=== PATIENT | male | born 1970 | race Hispanic/Latino ===

== ENCOUNTER → 2019-01-25 | Outpatient (CLI) | payer BC | END | disposition home or self-care (01) | LOC: SHCH 08:30 | PROVIDERS: ATTEND Internal Medicine Cardiovascular Disease | DX: I11.9 Hypertensive heart disease without heart failure (principal) | CPT/HCPCS: 93306 ==

== ENCOUNTER 2019-04-05 06:05 | Observation (INO) | payer BC ==
[2019-04-03 14:50] VITALS: BP 139/70
[2019-04-03 15:05] LABS: BASOPHILS % (AUTO) 0.7 % (0.0-5.0); HEMATOCRIT 44.4 % (42-54); LYMPHOCYTES % (AUTO) 25.3 % (21.0-51.0); MEAN CORPUSCULAR HEMOGLOBIN 32.2 pg (27.0-33.0); MEAN CORPUSCULAR HGB CONC 34.3 g/dL (32.0-36.0); MONOCYTES % (AUTO) 6.4 % (3.0-13.0); NEUTROPHILS % (AUTO) 63.6 % (40.0-77.0); PLATELET COUNT (AUTO) 145 K/uL (130-400); RED BLOOD CELL COUNT(AUTO) 4.73 MIL/uL (4.50-6.20); RED CELL DISTRIBUTION WIDTH 14.3 % (11.0-15.5)
[2019-04-03 15:18] LABS: POTASSIUM 3.8 mmol/L (3.5-5.1)
[2019-04-03 15:20] LABS: INR 0.98 (0.85-1.15); PARTIAL THROMBOPLASTIN TIME 27.1 SEC (26.3-35.5); PROTHROMBIN TIME 10.3 SEC (9.6-11.6)
[~2019-04-05] VITALS: Ht 185.4 cm; Wt 164.0 kg
[2019-04-05] VITALS (10 sets, daily range): BP systolic 103–145; BP diastolic 59–81
[~2019-04-05 06:05] MED LIST: ASPI-1181 PO; CARV12.511 PO; FURO40TA5 PO; LISI-617 PO
[2019-04-05] MEDS: SODIUM CHLORIDE 0.9% 1000ML 1,000 ML IV SCH ×2 (06:37→20:08)
[2019-04-05] MEDS ORDERED: MIDAZOLAM HCL 1 MG/ML 2ML VIAL ONE ×3 (07:25→08:16)
[2019-04-05] MEDS ORDERED: IODIXANOL 320 MG/ML 100 ML VIAL ONE (07:25)
[2019-04-05] MEDS ORDERED: MEPERIDINE-PF 25 MG/ML SYG ONE ×3 (07:25→08:16)
[2019-04-05] MEDS ORDERED: LIDOCAINE HCL 1% MDV 50ML VIAL ONE (07:26)
[2019-04-05] MEDS ORDERED: VANCOMYCIN 1GM+NS 250ML 500 ML IV ONE (07:26)
[2019-04-05] MEDS ORDERED: BUPIVACAINE/PF 0.25% 30ML VIAL IJ ONE (07:27)
--- NOTE | 2019-04-05 07:30 | NUR ---
PROCEDURE PT TAKEN TO [facility] VIA BED,NO DISTRESS NOTED. DENIED ANY PAIN OR DISCOMFORTS.
[2019-04-05] MEDS ORDERED: ACETAMINOPHEN-CODEINE 300/30MG TAB PO PRN (09:15)
--- NOTE | 2019-04-05 09:25 | NUR ---
POST RECEIVED PATIENT FROM MANAGER ICU, S/P ICD. DRESSING TO LEFT UPPER CHEST DRY AND INTACT, ARM SLING IN PLACE. VS STABLE ON ARRIVAL. PLAN OF CARE DISCUSS WITH PATIENT
--- NOTE | 2019-04-05 09:49 | NUR ---
ADMIT SPOKE TO DR. DEAN INFORM HIM OF PATIENTS ADMISSION. INFORMED HIM OF ROOM NUMBER
--- NOTE | 2019-04-05 10:22 | NUR ---
REPORT REPORT GIVEN TO KOTA SONG RN
--- NOTE | 2019-04-05 10:25 | NUR ---
TRANSFER PATIENT TRANSFERRED TO ROOM 223 VIA BED, PATIENT AWAKE AND ALERT, LEFT UPPER CHEST DRESSING DRY AND INTACT WITH ARM SLING IN PLACE. NO HEMATOMA OR BLEEDING TO SITE. VS STABLE.
--- NOTE | 2019-04-05 10:30 | NUR ---
POST PROCEDURE RECEIVED PT FROM DAY PATIENT, IN SEMI JAQUEZ'S POSITION, A&OX3, CALM COOPERATIVE AND DOES NOT APPEAR TO BE IN ANY DISTRESS NOR ANY NEURO DEFICITS PRESENT. LEFT SHOULDER DRESSING DRY, INTACT AND SECURED WITH ARM SLING, PT ON BEDREST FOR 3 HOURS UNTIL 1330. PT DOES C/O INCISIONAL DISCOMFORT. CALL LIGHT WITHIN REACH.
[2019-04-05] MEDS ORDERED: LISINOPRIL 5 MG TABLET PO SCH (21:00)
[2019-04-05] MEDS: CARVEDILOL 12.5 MG TABLET PO SCH (21:59)
[2019-04-06 00:48] VITALS: BP 131/85
[2019-04-06 04:42] VITALS: BP 143/92
[2019-04-06 08:00] VITALS: BP 130/86
[2019-04-06] MEDS: CARVEDILOL 12.5 MG TABLET PO SCH (08:58)
[2019-04-06] MEDS ORDERED: ASPIRIN 81 MG EC TAB PO SCH (09:00)
[2019-04-06] MEDS ORDERED: FUROSEMIDE 40 MG TABLET PO SCH (09:00)
[2019-04-06 11:47] VITALS: BP_SYST 113; BP_SYST 13; BP_DIAS 70
--- NOTE | 2019-04-06 15:00 | NUR ---
DISCHARGE INSTRUCTIONS GIVEN, PIV REMOVED AND INTACT, DISCHARGED HOME TO FAMILY VEHICLE VIA WHEELCHAIR..
== END 2019-04-06 14:51 | disposition home or self-care (01) ==
LOC: DAH 06:05 → DAHIP 06:06 → DAH 06:06 → 2DH 10:27
PROVIDERS: ADMIT Internal Medicine; ATTEND Internal Medicine
DX: I50.22 Chronic systolic (congestive) heart failure (principal); I25.5 Ischemic cardiomyopathy; I42.0 Dilated cardiomyopathy; F41.9 Anxiety disorder, unspecified; Z87.891 Personal history of nicotine dependence; Z79.82 Long term (current) use of aspirin; Z79.899 Other long term (current) drug therapy; Z88.0 Allergy status to penicillin
CPT/HCPCS: 33249; 36415; 71045; 80048; 85025; 85610; 85730; A4215; A4216; A4221; A4222; A4223 ×3; A4606; C1722; C1895; G0378 ×30; J2175 ×2; J2250 ×2; J3370; J3490 ×2; J7030; Q9967; 99156; 99157

== ENCOUNTER 2021-11-11 22:44 | Emergency (ER) | payer BC ==
[~2021-11-11] VITALS: Ht 185.4 cm; Wt 189.6 kg
[~2021-11-11 22:44] MED LIST changes: -ASPI-1181 PO; +ASPI-1443 PO; -LISI-617 PO; +LISI5TAB21 PO
[2021-11-11] MEDS ORDERED: FUROSEMIDE 40MG VIAL IV ONE (23:30)
[2021-11-11 23:44] LABS: BASOPHILS % (AUTO) 0.8 % (0.0-5.0); EOSINOPHILS % (AUTO) 1.4 % (0.0-8.0); HEMATOCRIT 47.1 % (42-54); LYMPHOCYTES % (AUTO) 24.8 % (21.0-51.0); MEAN CORPUSCULAR HEMOGLOBIN 28.6 pg (27.0-33.0); MEAN CORPUSCULAR HGB CONC 32.1 g/dL (32.0-36.0); MEAN CORPUSCULAR VOLUME 89.2 fL (79-99); MONOCYTES % (AUTO) 8.5 % (3.0-13.0); NEUTROPHILS % (AUTO) 64.2 % (40.0-77.0); PLATELET COUNT (AUTO) 140 K/uL (130-400); RED BLOOD CELL COUNT(AUTO) 5.28 MIL/uL (4.50-6.20); RED CELL DISTRIBUTION WIDTH 17.1 % (11.0-15.5); WHITE BLOOD COUNT (AUTO) 7.7 K/uL (4.8-10.8)
[2021-11-11 23:52] LABS: CREATININE 1.1 mg/dL (0.5-1.5); POTASSIUM 3.8 mmol/L (3.5-5.1)
[2021-11-11 23:57] LABS: ALBUMIN 3.3 g/dL (3.5-5.0); BILIRUBIN,TOTAL 3.1 mg/dL (0.2-1.0); MAGNESIUM 1.9 mg/dL (1.80-2.40); TOTAL PROTEIN, SERUM 6.9 g/dL (6.0-8.3)
[2021-11-12 00:01] LABS: B-TYPE NATRIURETIC PEPTIDE 1060 pg/mL (0-100)
[2021-11-12 00:30] VITALS: BP 137/94
[2021-11-12] MEDS ORDERED: BUME1TAB7 PO (00:49)
[2021-11-12] MEDS ORDERED: ACET-2079 PO (00:49)
[2021-11-12] MEDS ORDERED: ONDA4TAB10 PO (00:49)
== END 2021-11-12 01:16 | disposition home or self-care (01) ==
LOC: EDH 22:44
DX: E86.9 Volume depletion, unspecified (principal); R11.0 Nausea; I11.0 Hypertensive heart disease with heart failure; I50.9 Heart failure, unspecified; Z88.0 Allergy status to penicillin; Z79.899 Other long term (current) drug therapy; Z79.82 Long term (current) use of aspirin
CPT/HCPCS: 36415; 71045; 80053; 83735; 83880; 84484; 85025; 93005; 96374; 99284; J1940

== ENCOUNTER 2023-03-16 15:28 | Emergency (ER) | payer BC, OTHER ==
[~2023-03-16] VITALS: Ht 185.4 cm; Wt 196.0 kg
[~2023-03-16 15:28] MED LIST changes: +ACET-2079 PO; +BUME1TAB7 PO; +ONDA4TAB10 PO
[2023-03-16 17:47] LABS: BASOPHILS # (AUTO) 0.04 K/uL (0.00-0.20); BASOPHILS % (AUTO) 0.5 % (0.0-5.0); EOSINOPHILS # (AUTO) 0.16 K/uL (0.00-0.70); EOSINOPHILS % (AUTO) 2.2 % (0.0-8.0); HEMATOCRIT 52.6 % (42-54); IMMATURE GRANULOCYTE ABSOLUTE 0.04 K/uL (0-1); LYMPHOCYTES # (AUTO) 1.8 K/uL (1.0-4.8); LYMPHOCYTES % (AUTO) 25.1 % (21.0-51.0); MEAN CORPUSCULAR HEMOGLOBIN 30.1 pg (27.0-33.0); MEAN CORPUSCULAR HGB CONC 32.9 g/dL (32.0-36.0); MEAN CORPUSCULAR VOLUME 91.5 fL (79-99); MONOCYTES # (AUTO) 0.6 K/uL (0.1-1.0); MONOCYTES % (AUTO) 7.9 % (3.0-13.0); NEUTROPHILS # (AUTO) 4.7 K/uL (1.8-7.7); NEUTROPHILS % (AUTO) 63.8 % (40.0-77.0); NUCLEATED RED BLOOD CELLS 0.3 % (0.0-0.19); PLATELET COUNT (AUTO) 127 K/uL (130-400); RED BLOOD CELL COUNT(AUTO) 5.75 MIL/uL (4.50-6.20); RED CELL DISTRIBUTION WIDTH 16.3 % (11.0-15.5); WHITE BLOOD COUNT (AUTO) 7.3 K/uL (4.8-10.8)
[2023-03-16 17:59] LABS: CREATININE 1.2 mg/dL (0.5-1.5); POTASSIUM 3.5 mmol/L (3.5-5.1)
[2023-03-16 18:03] LABS: ALBUMIN 3.2 g/dL (3.5-5.0); BILIRUBIN,TOTAL 1.5 mg/dL (0.2-1.0); TOTAL PROTEIN, SERUM 6.2 g/dL (6.0-8.3)
[2023-03-16] MEDS ORDERED: LIDOCAINE HCL 2% VISCOUS 15 ML UDCUP PO ONE (18:30)
[2023-03-16] MEDS ORDERED: MAG/ALUM/SIMETH 30 ML UDCUP PO ONE (18:30)
[2023-03-16] MEDS ORDERED: METOCLOPRAMIDE 10 MG/2 ML VIAL IVP ONE (18:30)
[2023-03-16] MEDS ORDERED: FAMOTIDINE 20MG TAB PO ONE (18:30)
[2023-03-16] MEDS ORDERED: DICYCLOMINE HCL 10 MG/5 ML ML PO ONE (18:30)
[2023-03-16] MEDS ORDERED: METO-296 PO (19:23)
[2023-03-16] MEDS ORDERED: HYDR50CA50 PO (19:23)
[2023-03-16] MEDS ORDERED: PANT40TA PO (19:23)
[2023-03-16 20:29] VITALS: BP 126/88; PULSE 80; RESP 16; O2SAT 99
== END 2023-03-16 20:31 | disposition home or self-care (01) ==
LOC: EDH 15:28
DX: K80.20 Calculus of gallbladder without cholecystitis without obstruction (principal); R10.13 Epigastric pain; I11.0 Hypertensive heart disease with heart failure; I50.9 Heart failure, unspecified; F41.9 Anxiety disorder, unspecified; F32.A Depression, unspecified; E66.09 Other obesity due to excess calories; Z68.43 Body mass index [BMI] 50.0-59.9, adult; Z79.82 Long term (current) use of aspirin; Z79.899 Other long term (current) drug therapy; Z98.890 Other specified postprocedural states; Z88.0 Allergy status to penicillin
CPT/HCPCS: 99285; 74176; 96374; 71045; 84484; 80053; 83880; 83690; 85025; 36415; 93005; J2765

== ENCOUNTER → 2023-05-24 | Outpatient (CLI) | payer BC ==
[~2023-05-24] MED LIST changes: +HYDR50CA50 PO; +METO-296 PO; +PANT40TA PO
[2023-05-24 12:31] LABS: POTASSIUM 3.9 mmol/L (3.5-5.1)
== END | disposition home or self-care (01) ==
LOC: LAB 10:59
PROVIDERS: ATTEND Internal Medicine Cardiovascular Disease
DX: I10 Essential (primary) hypertension (principal)
CPT/HCPCS: 36415; 80048

== ENCOUNTER → 2023-07-30 | Outpatient (CLI) | payer BC ==
[2023-07-30 12:31] LABS: CREATININE 0.9 mg/dL (0.5-1.5); POTASSIUM 4.6 mmol/L (3.5-5.1)
== END | disposition home or self-care (01) ==
LOC: LAB 11:26
PROVIDERS: ATTEND Internal Medicine Cardiovascular Disease
DX: I11.0 Hypertensive heart disease with heart failure (principal); I50.42 Chronic combined systolic (congestive) and diastolic (congestive) heart failure
CPT/HCPCS: 36415; 80048; 83735

== ENCOUNTER → 2024-03-31 | Outpatient (CLI) | payer BC ==
[~2024-03-31] MED LIST changes: +ONDA-243 PO; -ONDA4TAB10 PO
[2024-03-31 12:28] LABS: BASOPHILS # (AUTO) 0.05 K/uL (0.00-0.20); BASOPHILS % (AUTO) 0.6 % (0.0-5.0); EOSINOPHILS # (AUTO) 0.22 K/uL (0.00-0.70); EOSINOPHILS % (AUTO) 2.8 % (0.0-8.0); HEMATOCRIT 54.7 % (42-54); IMMATURE GRANULOCYTE ABSOLUTE 0.03 K/uL (0-1); LYMPHOCYTES # (AUTO) 1.7 K/uL (1.0-4.8); LYMPHOCYTES % (AUTO) 21.4 % (21.0-51.0); MEAN CORPUSCULAR HEMOGLOBIN 31.2 pg (27.0-33.0); MEAN CORPUSCULAR HGB CONC 33.1 g/dL (32.0-36.0); MEAN CORPUSCULAR VOLUME 94.3 fL (79-99); MONOCYTES # (AUTO) 0.6 K/uL (0.1-1.0); MONOCYTES % (AUTO) 7.6 % (3.0-13.0); NEUTROPHILS # (AUTO) 5.2 K/uL (1.8-7.7); NEUTROPHILS % (AUTO) 67.2 % (40.0-77.0); PLATELET COUNT (AUTO) 143 K/uL (130-400); RED CELL DISTRIBUTION WIDTH 14.8 % (11.0-15.5); WHITE BLOOD COUNT (AUTO) 7.8 K/uL (4.8-10.8)
[2024-03-31 12:48] LABS: POTASSIUM 3.5 mmol/L (3.5-5.1)
== END | disposition home or self-care (01) ==
LOC: LAB 10:25
PROVIDERS: ATTEND Internal Medicine Cardiovascular Disease
DX: I10 Essential (primary) hypertension (principal)
CPT/HCPCS: 36415; 80048; 83880; 85025

== ENCOUNTER → 2024-04-11 | Outpatient (CLI) | payer BC ==
[2024-04-11 12:02] LABS: BASOPHILS # (AUTO) 0.04 K/uL (0.00-0.20); BASOPHILS % (AUTO) 0.5 % (0.0-5.0); EOSINOPHILS # (AUTO) 0.14 K/uL (0.00-0.70); EOSINOPHILS % (AUTO) 1.8 % (0.0-8.0); HEMATOCRIT 53.9 % (42-54); IMMATURE GRANULOCYTE ABSOLUTE 0.03 K/uL (0-1); LYMPHOCYTES # (AUTO) 1.5 K/uL (1.0-4.8); LYMPHOCYTES % (AUTO) 18.9 % (21.0-51.0); MEAN CORPUSCULAR HEMOGLOBIN 30.9 pg (27.0-33.0); MEAN CORPUSCULAR HGB CONC 33.4 g/dL (32.0-36.0); MEAN CORPUSCULAR VOLUME 92.5 fL (79-99); MONOCYTES # (AUTO) 0.7 K/uL (0.1-1.0); MONOCYTES % (AUTO) 8.8 % (3.0-13.0); NEUTROPHILS # (AUTO) 5.6 K/uL (1.8-7.7); NEUTROPHILS % (AUTO) 69.6 % (40.0-77.0); PLATELET COUNT (AUTO) 167 K/uL (130-400); RED BLOOD CELL COUNT(AUTO) 5.83 MIL/uL (4.50-6.20); RED CELL DISTRIBUTION WIDTH 14.5 % (11.0-15.5)
[2024-04-11 12:19] LABS: CREATININE 1.1 mg/dL (0.5-1.3); MAGNESIUM 1.8 mg/dL (1.80-2.40); POTASSIUM 3.1 mmol/L (3.5-5.1)
== END | disposition home or self-care (01) ==
LOC: LAB 10:48
PROVIDERS: ATTEND Internal Medicine Cardiovascular Disease
DX: I10 Essential (primary) hypertension (principal)
CPT/HCPCS: 36415; 80048; 83735; 83880; 85025

== ENCOUNTER → 2024-05-08 | Outpatient (CLI) | payer BC ==
[2024-05-08] MEDS: REGADENOSON 0.4 MG/5 ML PF SYG IVP ONE (16:02)
--- NOTE | 2024-05-09 08:25 | HMCSR ---
APPROVED REPORT Height: 6 ft 1in Weight: 395 lbs TEST INDICATIONS Unspecified Systolic CHF The imaging protocol used to acquire images was Rest Tc-99m/stress Tc-99m 1 day Consent: The procedure was explained and understood by the patient. Informerd consent was witnessed Ekta MEJÍA RN First, low dose rest was performed then high dose stress. RESTING DATA: The resting ekg shows: NSR, LBBB Rest SPECT myocardial perfusion imaging was performed in supine position 73 minutes following the int ravenous injection of 11.8 mCi of Tc-99 Sestamibi. Time of rest injection: 08:20: Date: 05/08/2024 Time of rest imagin:33: Date: 05/08/2024 PHARMACOLOGIC STRESS: Pharmacologic stress test was performed by injecting regadenoson 0.4 mg IV push followed by the intra venous injection of 35.5 mCi of Tc-99 Sestamibi. Time of stress injection: 09:56: Date: 05/08/2024 Time of stress imagin:01: Date: 05/08/2024 Heart Rate at time of stress injection: 89 bpm. Gated Stress SPECT was performed 125 minutes after stress injection. The images were gated to evaluate regional wall motion and calculate left ventricular ejection fracti on. STRESS DETAILS Reason for Termination: Infusion complete Stress Symptoms: Dyspnea, Warm Max HR Achieved: 96 bpm % of APMHR Achieved: 58 Max Blood Pressure: 117/65 mmHg Stress ECG: NSR, LBBB Conclusion Inferior, apical and lateral infarct No ischemia LV Ejection fraction 14% Global severe hypokinesis Dilated LV at rest and stress Increased lung uptake noted.
== END | disposition home or self-care (01) ==
LOC: SHCH 07:53
PROVIDERS: ATTEND Internal Medicine Cardiovascular Disease
DX: I44.7 Left bundle-branch block, unspecified (principal); I50.20 Unspecified systolic (congestive) heart failure
CPT/HCPCS: 78452; 93017; J2785; A9500 ×2